=== PATIENT | male | born 1980 | race American Indian/Alaskan Native ===

== ENCOUNTER 2019-01-09 21:18 | Emergency (ER) | payer MEDICAID ==
[2019-01-09 21:59] VITALS: BP 118/81; PULSE 103; RESP 20; TEMP 98.3; O2SAT 99
[2019-01-09] MEDS ORDERED: Lidocaine Hydrochloride 5 ML INJ ONE (23:26)
--- NOTE | 2019-01-10 00:15 | C.PDOC ---
History Of Present Illness 38-year-old male presents to the ED for evaluation of a possible foreign body in his right cheek. Patient has piercings to both of his cheeks and felt the right side had started to become irritated. He tried removing the piercing, but feels like the shaft is stuck inside his right cheek. Patient denies trauma/injury to the site. Time Seen by Provider: 01/09/19 21:42 Chief Complaint (Nursing): Foreign Body History Per: Patient History/Exam Limitations: no limitations Onset/Duration Of Symptoms: Hrs Current Symptoms Are (Timing): Still Present Location Of Injury: Right: Face (cheek ) Additional History Per: Patient Past Medical History Reviewed: Historical Data, Nursing Documentation, Vital Signs Vital Signs: Last Vital Signs Temp 98.3 F 01/09/19 21:33 Pulse 103 H 01/09/19 21:33 Resp 20 01/09/19 21:33 BP 118/81 01/09/19 21:33 Pulse Ox 99 01/09/19 21:33 - Medical History PMH: No Chronic Diseases Surgical History: No Surg Hx Family History: States: Unknown Family Hx - Social History Hx Alcohol Use: No Hx Substance Use: No - Immunization History Hx Tetanus Toxoid Vaccination: No Hx Influenza Vaccination: No Hx Pneumococcal Vaccination: No Review Of Systems Constitutional: Negative for: Fever, Chills, Weakness ENT: Positive for: Other (possible foreign body in right cheek ). Negative for: Mouth Swelling Cardiovascular: Negative for: Chest Pain Respiratory: Negative for: Cough, Shortness of Breath Skin: Negative for: Rash Neurological: Negative for: Weakness, Numbness Physical Exam - Physical Exam Appears: Well, Non-toxic, No Acute Distress Skin: Normal Color, Warm, No Rash Head: Atraumatic, Normacephalic, Swelling (to right cheek, around site of piercing ), Other (no palpable foreign body inside right cheek ) Eye(s): bilateral: Normal Inspection (no scleral icterus ), PERRL, EOMI Ear(s): Bilateral: Normal (no drainage ) Nose: Normal Oral Mucosa: Moist Throat: Normal (no swelling or injection ), No Erythema, Other (airway patent ) Respiratory: No Accessory Muscle Use, Other (normal inspiratory effort ) Back: Other (ambulating with steady upright gait ) Extremity: Normal ROM Extremity: Bilateral: Atraumatic Neurological/Psych: Oriented x3, Normal Cranial Nerves (grossly intact ) ED Course And Treatment O2 Sat by Pulse Oximetry: 99 (on RA) Pulse Ox Interpretation: Normal Medical Decision Making Medical Decision Making: Progress: Upon pressing on the right cheek to palpate for foreign body, slight purulent discharge produced. Temportamandibular joint XR ordered and reviewed. Foreign body removal procedure: Inner and outer aspects of right cheek anesthetized with lidocaine without epinephrine. Foreign body located. Small, 1cm incision made inside cheek. Thony of the piercing was stabilized with clamp and piercing was removed from the inner cheek using another clamp. Patient tolerated the procedure well without complications. Patient give one dose of antibiotics in the ED and will be discharged with two antibiotics. 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 - Scribe Statement The provider has reviewed the documentation as recorded by the Scribe (Brianne Mooney) All medical record entries made by the Scribe were at my direction and personally dictated by me. I have reviewed the chart and agree that the record accurately reflects my personal performance of the history, physical exam, medical decision making, and the department course for this patient. I have also personally directed, reviewed, and agree with the discharge instructions and disposition. Procedures - Foreign Body Removal Consent Obtained: verbal consent Site: face (right cheek ) Description of foreign body: other (metal piercing ) Sedation/Analgesia: other (lidocaine ) Technique: other (removal with clamp) Confirmed by:: radiograph Complications:: None Post-procedure exam: Awake, alert
--- NOTE | 2019-01-10 00:18 | C.PDOC ---
History Of Present Illness 38 year old male presents to the ED for a possible foreign body removal. Patient has piercings in both his cheeks and noticed the piercing in the right cheek was starting to become irritated. Patient tried removing the piercing, but thinks the shaft of the peircing may still be stuck in his cheek and presents for evaluation. Patient denies any injury/trauma to the area. Time Seen by Provider: 01/09/19 21:42 Chief Complaint (Nursing): Foreign Body History Per: Patient History/Exam Limitations: no limitations Onset/Duration Of Symptoms: Hrs Current Symptoms Are (Timing): Still Present Additional History Per: Patient Past Medical History Reviewed: Historical Data, Nursing Documentation, Vital Signs Vital Signs: Last Vital Signs Temp 98.3 F 01/09/19 21:33 Pulse 103 H 01/09/19 21:33 Resp 20 01/09/19 21:33 BP 118/81 01/09/19 21:33 Pulse Ox 99 01/09/19 21:33 - Medical History PMH: No Chronic Diseases Surgical History: No Surg Hx Family History: States: Unknown Family Hx - Social History Hx Alcohol Use: No Hx Substance Use: No - Immunization History Hx Tetanus Toxoid Vaccination: No Hx Influenza Vaccination: No Hx Pneumococcal Vaccination: No Review Of Systems Constitutional: Negative for: Fever, Chills Eyes: Negative for: Redness ENT: Positive for: Other (possible foreign body inside right cheek ). 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 - Scribe Statement The provider has reviewed the documentation as recorded by the Scribe (Brianne Mooney) All medical record entries made by the Scribe were at my direction and personally dictated by me. I have reviewed the chart and agree that the record accurately reflects my personal performance of the history, physical exam, medical decision making, and the department course for this patient. I have also personally directed, reviewed, and agree with the discharge instructions and disposition.
[2019-01-10] MEDS ORDERED: Clindamycin 600mg/50ml D5W 600 MG/50 ML VIAL IVPB SCH (00:30)
[2019-01-10] MEDS ORDERED: Clindamycin 600mg/50ml NS 600 MG/50 ML BAG IVPB ONE (00:32)
--- NOTE | 2019-01-10 16:01 | RAD ---
Date of service: 01/09/2019 PROCEDURE: Radiographs of the temporomandibular joints HISTORY: foreign body COMPARISON: None TECHNIQUE: AP lateral and oblique views were obtained. FINDINGS: There is a metallic piercing in the right cheek. There is soft tissue swelling overlying the right cheek. There are also piercings in the left nasal soft tissues and overlying the left mandible. Bone alignment and mineralization are normal. There is no acute displaced fracture or bone destruction. IMPRESSION: 1. Metallic piercing in the right cheek with overlying soft tissue swelling. 2. No acute fracture or dislocation.
== END 2019-01-10 01:00 | disposition home or self-care (01) ==
LOC: C.ER 21:18
DX: S00.552A Superficial foreign body of oral cavity, initial encounter (principal); K12.2 Cellulitis and abscess of mouth; W45.8XXA Other foreign body or object entering through skin, initial encounter